=== PATIENT | female | born 1960 | race Caucasian/White ===

== ENCOUNTER 2021-06-26 10:39 | Emergency (ER) | payer MEDICAID, SELFPAY ==
[2021-06-26 10:50] VITALS: BP 111/62; PULSE 77; RESP 14; TEMP 36.6; O2SAT 99; BMI 20.3
--- NOTE | 2021-06-26 10:57 | XRR_ITS ---
PROCEDURE INFORMATION: Exam: XR Chest Exam date and time: 06/26/2021 10:57 AM Age: 61 years old Clinical indication: Pain; Chest pressure; Additional info: Cp TECHNIQUE: Imaging protocol: XR of the chest. Views: 1 view. COMPARISON: CR Chest 1 [place] [id number] 07/04/2017 10:58 AM FINDINGS: Lungs: Unremarkable. No consolidation. Pleural spaces: Unremarkable. No pleural effusion. No pneumothorax. Heart/Mediastinum: Unremarkable. No cardiomegaly. Bones/joints: Unremarkable. XR/XR chest 1V portable [id number] IMPRESSION: No acute findings.
--- NOTE | 2021-06-26 10:57 | ECG_ITS ---
[facility] Test Date: 2021-06-26 Pat Name: Lars Lawrence Department: Room: Gender: Female Data Warehouse Specialist: : 1960 Requested By: Mihir oRse Order Number: [id number] Lyle MD: Ronit Louise M.D. Measurements Intervals [place] Rate: 76 P: 27 [place]: 119 QRS: 69 QRSD: 78 T: 35 QT: 391 QTc: 442 Interpretive Statements SINUS RHYTHM WITH SHORT [place] INTERVAL Compared to ECG 07/04/2017 11:25:01 No significant changes Electronically Signed On 06-27-2021 8:15:10 SEMICONDUCTOR WAFERS MARKER by Ronit Louise M.D. [id number] f
--- NOTE | 2021-06-26 11:00 | ED_ITS ---
HPI - Chest Pain General: Chief Complaint: Chest Pain Stated Complaint: CHEST PAIN Time Seen by Provider: 06/26/21 10:50 Source: patient and EMS Mode of arrival: EMS Limitations: no limitations History of Present Illness: HPI narrative: 61-year-old female who states she been having right-sided chest pain since yesterday states been very sharp in nature much worse with lifting her arm and with palpation she denies any shortness of breath denies any diaphoresis states pain is currently a 6 out of 10 no vomiting no diarrhea. Associated symptoms: Deny abdominal pain, dyspnea, fever(s), nausea or vomiting Review of Systems Const: Denies: fever(s), chills, body aches or change in appetite Eyes: Denies: blurry vision or eye discomfort ENMT: Denies: throat pain or dental pain Card: Reports: chest pain Resp: Denies: dyspnea GI: Denies: abdominal pain, nausea, vomiting or diarrhea : Denies: dysuria Musc: Denies: neck pain or back pain Skin/Breast: Denies: rash Neuro: Denies: headache(s) Psych: Denies: depression Brad/Lymph: Denies: easy bruising All/Imm: Denies: urticaria PFSH ED PFSH: Family History (Updated 06/26/21 @ 12:07 by Mihir Rose MD) Other CAD (coronary artery disease) Social History (Updated 06/26/21 @ 12:07 by Mihir Rose MD) Smoking and tobacco status: never smoked Physical Exam Const: COMMON NORMALS: no acute distress, patient oriented x3 and healthy appearing HENMT: COMMON NORMALS: normocephalic and atraumatic HEAD & SCALP: normocephalic and atraumatic Eye: COMMON NORMALS: Equal, round and reactive pupils present and EOMs intact bilaterally PUPIL: Yes Equal, round and reactive pupils present Neck/C-Spine: COMMON NORMALS: full ROM and supple Chest: COMMONS NORMALS: normal inspection of the chest OTHER: point tender over right chest Resp: COMMON NORMALS: normal respiratory effort, No retractions, No use of accessory muscles and clear to auscultation bilaterally AUSCULTATION: clear to auscultation bilaterally Cardio: COMMON NORMALS: regular rate, regular rhythm and No murmurs present (Cardio) RATE: regular rate RHYTHM: regular rhythm GI: COMMON NORMALS: Normal to inspection, nondistended, normoactive bowel sounds present, Soft to palpation, non-tender and no masses PALPATION: Yes Soft to palpation Extremity: COMMON NORMALS: normal to inspection and full ROM Neuro: COMMON NORMALS: patient oriented x3, moves all extremities and no focal motor deficits Psych: COMMON NORMALS: mental status grossly normal, Normal thought process present and cooperative THOUGHT PROCESS: Normal thought process present Skin: COMMON NORMALS: no rashes or lesions noted and no wounds GENERAL SKIN EXAM: no rashes or lesions noted Course Vital Signs: Vital signs: Vital Signs Temperature 97.8 F 06/26/21 10:50 Pulse Rate 71 06/26/21 11:21 Respiratory Rate 18 06/26/21 11:21 Blood Pressure 116/73 06/26/21 11:21 Pulse Oximetry 97 06/26/21 11:21 MDM - Chest Pain MDM Narrative: Medical decision making narrative: Patient presents here with chest pain is likely musculoskeletal in nature she is point tender on her right chest. Troponin EKG here are all normal no signs of acute coronary syndrome or pulmonary embolism she is stable for discharge is to follow-up with her PCP and return if worsening. Lab Data: Labs: Lab Results 06/26/21 06/26/21 06/26/21 11:15 11:15 11:15 WBC 7.9 10^3/uL 10^3/ uL (4.0-10.0) RBC 4.24 10^6/uL 10^6 /uL (4.1-5.3) Hgb 12.5 g/dL g/dL (11.5-15.3) Hct 37.0 % % (37.0-47.0) MCV 87.3 fl fl (81-99) MCH 29.5 pg pg (28.0-34.0) MCHC 33.8 g/dL g/dL (30.0-36.0) RDW 11.8 % L % (12.1-15.1) Plt Count 258 10^3/cmm 10^3 /cmm (130-400) MPV 12.2 fL H fL (7.4-10.4) Neut % (Auto) 65.0 % % Lymph % (Auto) 25.6 % % [place] % (Auto) 8.1 % % Eos % (Auto) 0.9 % % Baso % (Auto) 0.3 % % Neut # (Auto) 5.13 10^3/uL 10^3 /uL (1.8-7.7) Lymph # (Auto) 2.0 10^3/uL 10^3/ uL (0.8-4.8) [place] # (Auto) 0.6 10^3/uL 10^3/ uL (0.2-0.9) Eos # (Auto) 0.1 10^3/uL 10^3/ uL (0.0-0.8) Baso # (Auto) 0.0 10^3/uL 10^3/ uL (0.0-0.1) Nucleated RBC % (a uto) 0 % % Nucleated RBCs # 0.0 /100WBC /100W BC Sodium 129 mmol/L L mmol /L (136-145) Potassium 3.6 mmol/L mmol/L (3.5-5.1) Chloride 98 mmol/L mmol/L (98-107) Carbon Dioxide 19 mmol/L L mmol/ L (22-29) Anion Gap 15.6 (5-19) BUN 12 mg/dL mg/dL (8-23) Creatinine 0.5 mg/dL mg/dL (0.5-0.9) GFR Calculation 125.4 mL/min mL/m in (90-130) Glucose 93 mg/dL mg/dL (65-115) Calculated Osmolal ity 267 mOsm/kg L mOs m/kg (285-295) Calcium 9.6 mg/dL mg/dL (8.5-10.5) Total Bilirubin 0.4 mg/dL mg/dL (0.15-1.2) AST 39 U/L H U/L (0-32) ALT 34 U/L H U/L (0-33) Alkaline Phosphata se 72 IU/L IU/L (35-105) Troponin T Baselin e 6 ng/L ng/L (0-10) Total Protein 7.4 g/dL g/dL (6.6-8.7) Albumin 4.0 g/dL g/dL (3.5-5.2) Globulin 3.4 g/dL g/dL (1.3-4.6) EKG Data^: EKG 1: Attestation: I personally reviewed and interpreted this EKG as follows: EKG interpretation date: 06/26/21 EKG interpretation time: 11:09 Interpretation: nsr hr [address] or t wave abnormalities qrs 78 qtc 422 Discharge Plan Discharge Patient Disposition: Home Clinical Impression: Atypical chest pain Condition: Stable Prescriptions: New Naprosyn 500 mg tablet 500 mg PO BID PRN (Reason: pain) Qty: 20 RF: 0 Discharge Orders: Discharge ED (Routine); Ordered 06/26/21 Ordered By: Mihir Rose Discharge Diet: Advance as tolerated Discharge Activity: Resume usual activity Patient Instructions: Chest Wall Pain (ED) Coding Level of Care Code ED Child And Adolescent Therapist for Chg Fwd Exam Comprehensive
[2021-06-26 11:19] VITALS: RESP 14; O2SAT 97
[2021-06-26] MEDS: morphine 4 mg/mL SDV 1 mL IVP (11:19)
[2021-06-26] MEDS: ondansetron 2 mg/ML SDV 2 mL 4 MG IVP (11:19)
[2021-06-26 11:21] VITALS: BP 116/73; PULSE 71; RESP 18; O2SAT 97
[2021-06-26 11:23] LABS: Basophils % 0.3 %; Eosinophils # 0.1 10^3/uL (0.0-0.8); Eosinophils % 0.9 %; Hemoglobin 12.5 g/dL (11.5-15.3); Lymphocytes % 25.6 %; Mean Corpuscular HGB Conc 33.8 g/dL (30.0-36.0); Mean Corpuscular Hemoglobin 29.5 pg (28.0-34.0); Mean Corpuscular Volume 87.3 fl (81-99); Mean Platelet Volume 12.2 fL (7.4-10.4); Monocytes # 0.6 10^3/uL (0.2-0.9); Monocytes % 8.1 %; Neutrophils # 5.13 10^3/uL (1.8-7.7); Nucleated Red Blood Cells % 0 %; Platelet Count 258 10^3/cmm (130-400); Red Blood Count 4.24 10^6/uL (4.1-5.3); Red Cell Distribution Width 11.8 % (12.1-15.1); White Blood Count 7.9 10^3/uL (4.0-10.0)
[2021-06-26 11:44] LABS: Alanine Aminotransferase 34 U/L (0-33); Alkaline Phosphatase 72 IU/L (35-105); Anion Gap 15.6 (5-19); Aspartate Amino Transferase 39 U/L (0-32); Blood Urea Nitrogen 12 mg/dL (8-23); Calcium 9.6 mg/dL (8.5-10.5); Carbon Dioxide 19 mmol/L (22-29); Chloride 98 mmol/L (98-107); Globulin 3.4 g/dL (1.3-4.6); Glomerular Filtration Rate 125.4 mL/min (90-130); Glucose 93 mg/dL (65-115); Osmolality Calculated 267 mOsm/kg (285-295); Potassium 3.6 mmol/L (3.5-5.1); Sodium 129 mmol/L (136-145); Total Bilirubin 0.4 mg/dL (0.15-1.2); Total Protein 7.4 g/dL (6.6-8.7)
[2021-06-26 11:45] LABS: Troponin(5th) Baseline 6 ng/L (0-10)
[2021-06-26 12:13] VITALS: BP 96/60; PULSE 69; RESP 16; O2SAT 99
== END 2021-06-26 12:15 | disposition home or self-care (01) ==
PROVIDERS: Emergency Provider Emergency Medicine
DX: R07.89 Other chest pain (principal); Z82.49 Family history of ischemic heart disease and other diseases of the circulatory system
CPT/HCPCS: 71045; 80053; 84484; 85025; 93005; 96374; 96375; 99283; J2270; J2405

== ENCOUNTER 2021-12-13 05:59 | Emergency (ER) | payer BC, MEDICAID, SELFPAY ==
[2021-12-13 06:03] VITALS: PULSE 89; RESP 17; TEMP 36.4; BMI 27.5
--- NOTE | 2021-12-13 06:20 | ECG_ITS ---
[facility] Test Date: 2021-12-13 Pat Name: Lars Lawrence Department: Room: Gender: Female Stna: : 1960 Requested By: Solo Escalona Order Number: [id number] Lyle MD: Shahid Lombardo M.D. Measurements Intervals [place] Rate: 68 P: 35 [place]: 137 QRS: 74 QRSD: 84 T: 51 QT: 413 QTc: 441 Interpretive Statements SINUS RHYTHM Compared to ECG 06/26/2021 11:09:11 Short [place] interval no longer present Electronically Signed On 12-13-2021 17:32:37 CDT by Shahid Lombardo M.D. [id number] f
--- NOTE | 2021-12-13 06:21 | XRR_ITS ---
PROCEDURE INFORMATION: Exam: XR Chest Exam date and time: 12/13/2021 6:49 AM Age: 61 years old Clinical indication: Angina; Patient HX: Chest pain off and on for 2 weeks; Additional info: Elevated BP TECHNIQUE: Imaging protocol: Radiologic exam of the chest. Views: 1 view. COMPARISON: CR XR chest 1V portable [id number] 06/26/2021 11:34 AM FINDINGS: Lungs: Unremarkable. No consolidation. Pleural spaces: Unremarkable. No pleural effusion. No pneumothorax. Heart/Mediastinum: Unremarkable. No cardiomegaly. Bones/joints: Unremarkable. XR/XR chest 1V portable [id number] IMPRESSION: No acute findings.
[2021-12-13 06:30] LABS: Basophils % 0.3 %; Eosinophils # 0.1 10^3/uL (0.0-0.8); Eosinophils % 1.4 %; Hematocrit 36.1 % (37.0-47.0); Hemoglobin 12.5 g/dL (11.5-15.3); Lymphocytes # 2.1 10^3/uL (0.8-4.8); Lymphocytes % 30.6 %; Mean Corpuscular HGB Conc 34.6 g/dL (30.0-36.0); Mean Corpuscular Hemoglobin 29.8 pg (28.0-34.0); Mean Platelet Volume 12.8 fL (7.4-10.4); Monocytes # 0.7 10^3/uL (0.2-0.9); Monocytes % 9.7 %; Neutrophils # 4.05 10^3/uL (1.8-7.7); Neutrophils % 57.9 %; Nucleated Red Blood Cells % 0 %; Platelet Count 212 10^3/cmm (130-400); Red Cell Distribution Width 11.9 % (12.1-15.1)
[2021-12-13] MEDS: sodium chloride 0.9% 1,000 ML 999 ML IV (06:46)
[2021-12-13 06:52] LABS: Alanine Aminotransferase 20 U/L (0-33); Albumin Level 4.1 g/dL (3.5-5.2); Alkaline Phosphatase 75 IU/L (35-105); Anion Gap 13.6 (5-19); Aspartate Amino Transferase 25 U/L (0-32); Blood Urea Nitrogen 12 mg/dL (8-23); Calcium 9.1 mg/dL (8.5-10.5); Carbon Dioxide 25 mmol/L (22-29); Chloride 105 mmol/L (98-107); Creatine Phosphokinase 118 U/L (26-192); Globulin 3.2 g/dL (1.3-4.6); Glomerular Filtration Rate 101.6 mL/min (90-130); Glucose 98 mg/dL (65-115); Osmolality Calculated 290 mOsm/kg (285-295); Potassium 3.6 mmol/L (3.5-5.1); Sodium 140 mmol/L (136-145); Total Bilirubin 0.3 mg/dL (0.15-1.2); Total Protein 7.3 g/dL (6.6-8.7)
--- NOTE | 2021-12-13 06:57 | W.ED.DIZZY ---
HPI - Dizziness General: Chief Complaint: Dizziness Stated Complaint: DIZZY/N/V Time Seen by Provider: 12/13/21 06:03 Source: patient Mode of arrival: ambulatory Limitations: language barrier History of Present Illness: HPI Narrative: 61-year-old [place] Citizen-speaking female presents emergency room with complaint of elevated blood pressure and dizziness. On arrival EMS states that the bigger problem they seem to gather from her was nausea vomiting and diarrhea. Through technical trainer she endorses that the nausea and vomiting but states she was stuck in bed because she got lightheaded and dizzy and felt too weak to get out of bed she does occasionally get chest pain that radiates into her back and is associated with bilateral arm numbness. She has no known history of heart disease she is taking valerian root and liquid carvedilol which she evidently gets sent to her from a [place] Citizen pharmacy. No fever sweats chills nonproductive cough bowels and bladder been unremarkable. All history obtained through technical trainer. She takes the Coreg intermittently. She has been intermittently having chest pain for several days. MD elicited complaint: dizziness and lightheadedness Onset (ago): hour(s) Timing: gradual onset Severity: moderate Description: lightheadedness and difficulty walking Context: change in medication and change in body position Exacerbating factors: movement/ambulation and change in body position Relieving factors: remaining still Associated symptoms: Reports nausea and vomiting; Denies abnormal vaginal bleeding, change in hearing, chest pain, chills, cough, diaphoresis, ear discharge, ear pressure, fevers/chills, headache(s), malaise, nasal congestion, palpitations, rash, short of breath, syncope, tinnitus or weakness Associated neuro symptoms: Reports numbness in extremities; Deny confusion, difficulty speaking, dysphagia, diplopia, extremity weakness, facial numbness, facial weakness, gait changes or visual changes Review of Systems Const: Denies: chills, malaise or diaphoresis ENMT: Denies: ear discharge, change in hearing, tinnitus or nasal congestion Card: Denies: chest pain, palpitations or syncope Resp: Denies: dyspnea, productive cough or non-productive cough GI: Reports: nausea and vomiting; Denies: dysphagia : Denies: flank pain, difficulty voiding, dysuria, urinary frequency or urinary urgency Skin/Breast: Denies: rash or pruritus Neuro: Reports: numbness in extremities; Denies: headache(s) or confusion PFSH ED PFSH: Medical History (Updated 12/13/21 @ 10:42 by Solo Kelly DO) Hypertension Ovarian cyst Surgical History (Updated 12/13/21 @ 07:00 by Solo Kelly DO) H/O oophorectomy Family History (Updated 06/26/21 @ 12:07 by Mihir Rose MD) Other CAD (coronary artery disease) Social History (Updated 12/13/21 @ 07:00 by Solo Kelly DO) Smoking and tobacco status: never smoked Alcohol intake: never Physical Exam Const: COMMON NORMALS: no acute distress GENERAL APPEARANCE: cooperative and comfortable ORIENTATION/CONSCIOUSNESS: Yes awake, Yes oriented to person, Yes oriented to place and Yes oriented to time HENMT: COMMON NORMALS: normocephalic, atraumatic and hearing grossly normal bilaterally HEAD & SCALP: normocephalic and atraumatic Neck/C-Spine: COMMON NORMALS: no JVD Resp: COMMON NORMALS: normal respiratory effort, No retractions, No use of accessory muscles and clear to auscultation bilaterally AUSCULTATION: clear to auscultation bilaterally Cardio: COMMON NORMALS: no JVD, regular rate, regular rhythm and No murmurs present (Cardio) RATE: regular rate RHYTHM: regular rhythm GI: COMMON NORMALS: Soft to palpation and No hepatosplenomegaly present AUSCULTATION: Yes normoactive bowel sounds PALPATION: Yes Soft to palpation, No Tenderness to palpation present (GI), No Guarding due to palpation present (GI) and Yes No hepatosplenomegaly present Extremity: COMMON NORMALS: normal to inspection, capillary refill normal, no clubbing, cyanosis or edema, no calf tenderness and no pedal edema Neuro: SENSORIUM/ORIENTATION: Yes oriented to person, Yes oriented to place and Yes oriented to time Skin: COMMON NORMALS: no rashes or lesions noted GENERAL SKIN EXAM: no rashes or lesions noted Course Vital Signs: Vital signs: Vital Signs Temperature 97.6 F 12/13/21 06:03 Pulse Rate 76 12/13/21 11:05 Respiratory Rate 16 12/13/21 11:05 Blood Pressure 106/68 12/13/21 11:05 Pulse Oximetry 100 12/13/21 11:05 MDM - Dizziness Medical Decision Making History was done through a phone solution specialist and then one of our staff speaks fluent [place] was able to help us with the discharge. Reviewed labs and imaging patient is feeling much better orthostatics were good. She has been taking a liquid carvedilol that she gets from a [place] pharmacy advised her to stop both the valerian root and the liquid for carvedilol she is feeling much better now reviewed labs and imaging will discharge home follow-up with her primary care Medical Records I reviewed the patient's medical records. Lab Data I reviewed the patient's lab results. : 12/13/21 06:17 12/13/21 06:17 Radiology Impressions Chest X-Ray 12/13/21 06:21 IMPRESSION: No acute findings. Laboratory Results WBC 7.0 10^3/uL (4.0-10.0) 12/13/21 06:17 RBC 4.20 10^6/uL (4.1-5.3) 12/13/21 06:17 Hgb 12.5 g/dL (11.5-15.3) 12/13/21 06:17 Hct 36.1 % (37.0-47.0) L 12/13/21 06:17 MCV 86.0 fl (81-99) 12/13/21 06:17 MCH 29.8 pg (28.0-34.0) 12/13/21 06:17 MCHC 34.6 g/dL (30.0-36.0) 12/13/21 06:17 RDW 11.9 % (12.1-15.1) L 12/13/21 06:17 Plt Count 212 10^3/cmm (130-400) 12/13/21 06:17 MPV 12.8 fL (7.4-10.4) H 12/13/21 06:17 Neut % (Auto) 57.9 % 12/13/21 06:17 Lymph % (Auto) 30.6 % 12/13/21 06:17 [place] % (Auto) 9.7 % 12/13/21 06:17 Eos % (Auto) 1.4 % 12/13/21 06:17 Baso % (Auto) 0.3 % 12/13/21 06:17 Neut # (Auto) 4.05 10^3/uL (1.8-7.7) 12/13/21 06:17 Lymph # (Auto) 2.1 10^3/uL (0.8-4.8) 12/13/21 06:17 [place] # (Auto) 0.7 10^3/uL (0.2-0.9) 12/13/21 06:17 Eos # (Auto) 0.1 10^3/uL (0.0-0.8) 12/13/21 06:17 Baso # (Auto) 0.0 10^3/uL (0.0-0.1) 12/13/21 06:17 Nucleated RBC % (auto) 0 % 12/13/21 06:17 Nucleated RBCs # 0.0 /100WBC 12/13/21 06:17 Sodium 140 mmol/L (136-145) 12/13/21 06:17 Potassium 3.6 mmol/L (3.5-5.1) 12/13/21 06:17 Chloride 105 mmol/L (98-107) 12/13/21 06:17 Carbon Dioxide 25 mmol/L (22-29) 12/13/21 06:17 Anion Gap 13.6 (5-19) 12/13/21 06:17 BUN 12 mg/dL (8-23) 12/13/21 06:17 Creatinine 0.6 mg/dL (0.5-0.9) 12/13/21 06:17 GFR Calculation 101.6 mL/min (90-130) 12/13/21 06:17 Glucose 98 mg/dL (65-115) 12/13/21 06:17 Calculated Osmolality 290 mOsm/kg (285-295) 12/13/21 06:17 Calcium 9.1 mg/dL (8.5-10.5) 12/13/21 06:17 Total Bilirubin 0.3 mg/dL (0.15-1.2) 12/13/21 06:17 AST 25 U/L (0-32) 12/13/21 06:17 ALT 20 U/L (0-33) 12/13/21 06:17 Alkaline Phosphatase 75 IU/L (35-105) 12/13/21 06:17 Creatine Kinase 118 U/L (26-192) 12/13/21 06:17 Total Protein 7.3 g/dL (6.6-8.7) 12/13/21 06:17 Albumin 4.1 g/dL (3.5-5.2) 12/13/21 06:17 Globulin 3.2 g/dL (1.3-4.6) 12/13/21 06:17 Urine Color Straw (Yellow) 12/13/21 10:22 Urine Appearance Clear (CLEAR) 12/13/21 10:22 Urine pH 7 (5-7) 12/13/21 10:22 Ur Specific [place] 1.005 (1.005-1.030) 12/13/21 10:22 Urine Protein Neg (Negative) 12/13/21 10:22 Urine Glucose (UA) Norm (Normal) 12/13/21 10:22 Urine Ketones Negative (Negative) 12/13/21 10:22 Urine Blood Neg (Negative) 12/13/21 10:22 Urine Nitrate Negative (Negative) 12/13/21 10:22 Urine Bilirubin Neg (Negative) 12/13/21 10:22 Urine Urobilinogen Norm mg/dL (Negative) 12/13/21 10:22 Ur Leukocyte Esterase Negative (Negative) 12/13/21 10:22 Discharge Plan Discharge Patient Disposition: Home Clinical Impression: Dizziness, Orthostasis Prescriptions: No Action No Known Home Medications 0RF Discharge Orders: Discharge ED (Routine); Ordered 12/13/21 Ordered By: Solo Kelly Referrals: Jose Elias Su DO [Primary Care Provider] - Discharge Diet: Usual diet Discharge Activity: Increase activity as tolerated Patient Instructions: Opioid Safety Activity Restrictions/Additional Instructions: Stop all medications that you have been taking follow-up with your primary care doctor to reevaluate within the next 3 to 5 days. Coding Level of Care Code ED Treasury Representative for Chg Fwd Exam Comprehensive
[2021-12-13 07:43] VITALS: BP 115/73; PULSE 73; RESP 15; O2SAT 98
[2021-12-13 10:24] VITALS: BP 109/65; BP 123/70; BP 123/72; PULSE 69; PULSE 72; PULSE 77
[2021-12-13 10:40] LABS: Add Urine Microscopic? NO; Charge for UA Resulting for Rev
[2021-12-13 10:49] LABS: Bilirubin Urine Neg (Negative); Blood Urine Neg (Negative); Glucose Urine UA Norm (Normal); Ketones Urine Negative (Negative); Leukocyte Esterase Urine Negative (Negative); Nitrate Urine Negative (Negative); Protein Urine Neg (Negative); Specific Gravity, Urine 1.005 (1.005-1.030); Urine Appearance Clear (CLEAR); Urine Color Straw (Yellow); Urobilinogen Urine Norm (Negative); pH Urine 7 (5-7)
[2021-12-13 11:05] VITALS: BP 106/68; PULSE 76; RESP 16; O2SAT 100
== END 2021-12-13 11:08 | disposition home or self-care (01) ==
PROVIDERS: Emergency Provider Family Medicine; PCP Family Medicine
DX: R42 Dizziness and giddiness (principal); I95.1 Orthostatic hypotension; I10 Essential (primary) hypertension
CPT/HCPCS: 71045; 80053; 81003; 82550; 85025; 93005; 96360; 99284; J7030

== ENCOUNTER 2022-04-29 10:36 | Outpatient (CLI) | payer BC, MEDICAID, SELFPAY ==
--- NOTE | 2022-04-29 | ECG_ITS ---
[facility] Test Date: 2022-04-29 Pat Name: Lars Lawrence Department: Room: Gender: Female Dispatch Manager: : 1960 Requested By: Aurelio Harris Order Number: [id number] Lyle MD: Corky Mares M.D. Interpretive Statements NAME OF STUDY: TREADMILL STRESS ECHOCARDIOGRAM INDICATION: RECURRENT CP, PROCEDURE: At the baseline, the patient's blood pressure was 110/76 with a heart rate of 81. The baseline electrocardiogram showed normal sinus rhythm with normal ST-Ts.. The patient exercised for 2 minutes and 23 seconds on a standard [place] protocol. Patient attained a maximum heart rate of 148 beats per minute(93% of the maximum predicted heart rate) with a blood pressure at the peak exercise of 133/71 mm Hg. The EKG at the peak exercise revealed [address] depressions in leads II, III and aVF. Patient did not have any chest pain or any significant EKG changes with the exercise During the recovery phase, there were no new changes. Blood pressure at the end of the recovery phase was 99/62 mm Hg with a heart rate of 72 per minute. Echocardiographic pictures were taken at the baseline, immediately following the peak exercise and during the recovery phase. CONCLUSION: 1. Abnormal EKG response to treadmill exercise suggesting possible inferior wall ischemia 2. No exercise-induced chest pain or cardiac arrhythmia 3. Impaired exercise tolerance, attained a maximum of 4.6 METs 4. Please see separate report for the echocardiographic response to exercise. 5. Mild hypotension during the recovery phase, asymptomatic. Electronically Signed On 05-08-2022 17:18:10 INTEGRATED CAMPAIGN MANAGER by Corky Mares M.D. [id number]
--- NOTE | 2022-04-29 11:39 | USCV_ITS ---
Lars Lawrence Age: 62 Gender: F : 1960 Exam Date: 04/29/2022 12:08 Ordering Phys: Aurelio Fitzgerald MD Technologist: DEMETRI Exam Location: [facility] [place] Indication: Recurrent chest pain Rhythm: Sinus Patient History: HTN-Untreated.(normotensive the entire stress test), Family H/O CAD Cardiac Medications: No home meds Medications in past 24 hours: none Contrast: Stress Results Protocol: Ky Total dose(mL): Exercise Duration (min:sec): 2:23 METS: 4.6 Resting HR: 68 Resting BP: 110 / 76 Peak HR: 148 Peak BP: 140 / 78 Max Predicted HR: 158 94 % Max Predicted HR Target HR: 134 Double Product: Stress Summary: Patient is [place] and spoke very little Divehi. Her son was here to interpret for her but had to step out just before walking on the treadmill. The patient smiled the entire time and did not appear to be any distress whatsoever. No labored breathing noted. BP Response: Normotensive entire test Reason for Termination: target HR reached Cardiac Symptoms: none ECG Analysis Resting ECG: Stress ECG: Arrhythmia: MEASUREMENTS (Male/Female) Normal Values 2D ECHO LVOT Diameter 2.0 cm LV Ejection Fraction MOD 2C 70.7 % LV Ejection Fraction 2C AL 71.6 % LA Diameter 2.7 cm LA Width 3.1 cm LA Height 5.3 cm RA Width 3.7 cm RA Height 4.6 cm Aorta at Sinotubular Diameter 1.4 cm DOPPLER AV Peak Velocity 137.0 cm/s LVOT Peak Velocity 99.0 cm/s AV Area Cont Eq vti 2.6 cm squared AV Area Cont Eq pk 2.3 cm squared MV Area PHT 4.9 cm squared Mitral E to A Ratio 1.1 MV E' Velocity 80.0 cm/s FINDINGS The baseline echocardiogram revealed normal LV size and ejection fraction of 71%. No gross wall motion normalities noted. Both atria were found to be mildly dilated, left greater than the right. Segmental wall motion analysis revealing no gross wall motion abnormalities. No intracardiac masses or pericardial effusion. The aortic root was of normal size. With the peak exercise, there was good augmentation of all the segments with no exercise-induced wall motion normalities During the recovery phase, there is no new changes CONCLUSIONS 1. Normal echocardiographic response to treadmill exercise, suggesting low probability for coronary ischemia. 2. Mild biatrial enlargement. 3. For the EKG response to exercise, please refer to the separate report. 4. Impaired exercise tolerance-attained only 4.6 METS Consider doing a complete echo to evaluate for any valvular lesions or intracardiac shunts to explain the biatrial enlargement Dr Corky Mares MD [facility] (Electronically Signed) Final Date: 30 April 2022 12:13 S
[2022-04-29 12:39] VITALS: BP 99/62; PULSE 72
== END 2022-04-29 10:37 | disposition home or self-care (01) ==
LOC: CDL 10:39
PROVIDERS: PCP Family Medicine; Visit Provider Family Medicine
DX: R07.9 Chest pain, unspecified (principal); I51.7 Cardiomegaly
CPT/HCPCS: 93017; 93350; 93352

== ENCOUNTER 2022-05-29 12:09 | Emergency (ER) | payer BC, MEDICAID, SELFPAY ==
[2022-05-29 12:13] VITALS: BP 110/70; PULSE 111; RESP 16; TEMP 37.4; O2SAT 97; BMI 22.7
--- NOTE | 2022-05-29 12:42 | ED_ITS ---
HPI - Fever General: Chief Complaint: Fever Stated Complaint: Fever, SOB, and Heart rate is high Time Seen by Provider: 05/29/22 12:43 History of Present Illness: fever and cough Associated symptoms: Reports chills, nausea and vomiting Review of Systems General: Reports: 10 or more systems reviewed and unremarkable except in HPI and below Const: Reports: fever(s), chills, body aches, change in appetite, fatigue and malaise ENMT: Reports: throat pain Resp: Reports: dyspnea and productive cough GI: Reports: nausea and vomiting PFSH ED PFSH: Medical History Hypertension Ovarian cyst Surgical History H/O oophorectomy Family History Other CAD (coronary artery disease) Social History Smoking and tobacco status: never smoked Alcohol intake: never Physical Exam Const: COMMON NORMALS: no acute distress, patient oriented x3, no limitations and alert GENERAL APPEARANCE: cooperative and comfortable ORIENTATION/CONSCIOUSNESS: Yes awake, Yes oriented to person, Yes oriented to place and Yes oriented to time HENMT: COMMON NORMALS: normocephalic, atraumatic, external ears normal, EAC's normal, TM's normal bilaterally and Normal external nose present HEAD & SCALP: normal to inspection, normocephalic and atraumatic FACE & SINUS: normal facial exam, sinuses nontender and face symmetric NOSE: Normal external nose present, Normal nares present and No nasal discharge present EXTERNAL EAR: Yes external ears normal EXTERNAL AUDITORY CANAL: EAC's normal TYMPANIC MEMBRANE: TM's normal bilaterally MOUTH: Normal oral and palatal mucosa present, lip normal and tongue normal THROAT: posterior oropharynx normal, tonsils normal and uvula midline Eye: COMMON NORMALS: Equal, round and reactive pupils present, EOMs intact bilaterally and conjunctivae normal GENERAL EYE: appearance normal, both eyes and all related structures and normal light reflex EYELID: eyelids normal CONJUNCTIVA: Yes conjunctivae normal PUPIL: Yes Equal, round and reactive pupils present EOM: Yes EOM abnormal DIRECT OPHTHALMOSCOPY: Yes normal light reflex Neck/C-Spine: COMMON NORMALS: full ROM, no lymphadenopathy, supple, no meningeal signs, no JVD and Thyroid normal GENERAL: Yes normal visual inspection THYROID: Thyroid normal CERVICAL SPINE: Yes cervical ROM normal and Yes normal cervical lordosis Lymph: LYMPHATIC: no lymphadenopathy noted Chest: COMMONS NORMALS: normal inspection of the chest and normal palpation of entire chest wall Resp: COMMON NORMALS: normal respiratory effort and No retractions EFFORT & INSPECTION: Yes able to speak in complete sentences Cardio: COMMON NORMALS: no JVD, regular rate, regular rhythm, S1 normal heart sound present, S2 normal heart sound present, No gallops present (Cardio), No clicks present (Cardio), No murmurs present (Cardio), No rub (Cardio) and Peripheral pulses 2+ throughout RATE: regular rate RHYTHM: regular rhythm HEART SOUNDS: S1 normal heart sound present and S2 normal heart sound present PERIPHERAL PULSES: Peripheral pulses 2+ throughout GI: COMMON NORMALS: Normal to inspection, nondistended, normoactive bowel sounds present, Soft to palpation, non-tender and no masses PALPATION: Yes Soft to palpation : COMMON NORMALS: Yes no CVA tenderness and Yes normal external appearance BLADDER/KIDNEY EXAM: Yes no CVA tenderness Back/Pelvis: COMMON NORMALS: no CVA tenderness, thoracic and lumbar spine normal to inspection, no thoracic nor lumbar tenderness and thoraco-lumbar ROM normal Extremity: COMMON NORMALS: normal to inspection, full ROM, capillary refill normal, no joint enlargement, no clubbing, cyanosis or edema, no calf tenderness and no pedal edema GENERAL: Yes normal exam except as noted Neuro: COMMON NORMALS: patient oriented x3, moves all extremities, no focal motor deficits, no sensory deficits noted and gait normal SENSORIUM/ORIENTATION: Yes alert, Yes oriented to person, Yes oriented to place and Yes oriented to time MENINGEAL SIGNS: Yes no meningeal signs Psych: COMMON NORMALS: mental status grossly normal, Normal thought process present, cooperative, normal affect, speech normal and activity/motor behavior normal SPEECH: Yes normal speech THOUGHT PROCESS: Normal thought process present Skin: COMMON NORMALS: no rashes or lesions noted, no wounds and turgor normal GENERAL SKIN EXAM: no rashes or lesions noted and turgor normal Course ED course: Pt presents to ER with complaints of fever, NV, sore throat, body aches, and general malaise x 2 days. Swabs collected, pt is covid positive. Vital Signs: Vital signs: Vital Signs Temperature 99.4 F 05/29/22 12:13 Pulse Rate 111 H 05/29/22 12:13 Respiratory Rate 16 05/29/22 12:13 Blood Pressure 110/70 05/29/22 12:13 Pulse Oximetry 97 05/29/22 12:13 Oxygen Delivery Me thod 05/29/22 12:13 MDM - Fever Medical Decision Making Will proceed with DC and supportive therapies as well as weight and watch antibiotics; functional supplements encouraged to help with immune function. Return for new or worsening symptoms. Lab Data Laboratory Results Influenza Type A Ag negative (Negative) 05/29/22 12:58 Influenza Type B Ag negative (Negative) 05/29/22 12:58 SARS-CoV-2 Ag (Rapid) Positive (Negative) H 05/29/22 12:58 Group A Strep Rapid Negative (Negative) 05/29/22 12:58 Discharge Plan Discharge Patient Disposition: Home Clinical Impression: COVID-19, Bronchitis Condition: Stable Prescriptions: New acetylcysteine [NAC] 600 mg capsule 600 mg PO DAILY Qty: 30 0RF cholecalciferol (vitamin D3) 625 mcg (25,000 unit) capsule 1,250 mcg PO ONCE Qty: 30 0RF zinc acetate 50 mg (zinc) capsule 50 mg PO DAILY Qty: 30 0RF quercetin 500 mg capsule 500 mg PO DAILY Qty: 30 0RF azithromycin [Zithromax] 250 mg tablet See Rx Instructions .ROUTE .COMPLEX Qty: 6 0RF Rx Instructions: For 250 mg dose pack: take 500 mg today (day 1), then 250 mg for 4 days (days 2-5) Mucinex DM 30-600 mg tablet extended release 12 hr 1 tab PO Q12H Qty: 14 0RF methylprednisolone [Medrol (Jong)] 4 mg tablets,dose pack See Rx Instructions .ROUTE .COMPLEX Qty: 21 0RF Rx Instructions: orally per package directions Discharge Orders: Discharge ED (Routine); Ordered 05/29/22 Ordered By: Yulia Villalobos Referrals: Aurelio Fitzgerald MD [Primary Care Provider] - Discharge Diet: Advance as tolerated Discharge Activity: Increase activity as tolerated Patient Instructions: Opioid Safety, Pain Management Coding Level of Care Code ED Certified Medical Coding Specialist for Donta Morrison
[2022-05-29 13:29] LABS: Rapid Strep A Test Negative (Negative)
[2022-05-29 13:34] LABS: Influenza A by IFA negative (Negative); Influenza B by IFA negative (Negative)
[2022-05-29 13:39] LABS: SARS Covid-2 Antigen Positive (Negative)
== END 2022-05-29 15:40 | disposition home or self-care (01) ==
PROVIDERS: Emergency Provider Nurse Practitioner Family; PCP Family Medicine
DX: U07.1 COVID-19 (principal); J40 Bronchitis, not specified as acute or chronic; I10 Essential (primary) hypertension
CPT/HCPCS: 87081; 87426; 87804; 87880; 99283

== ENCOUNTER 2024-06-06 10:46 | Outpatient (CLI) | payer BC, MEDICAID, SELFPAY ==
[2024-06-06 12:18] VITALS: BMI 21.9
--- NOTE | 2024-06-06 12:26 | ECG_ITS ---
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 Interpretive Statements Lung unchanged pre/post procedure; Intraprocedure shortess of breath; Symptoms resoled by discharge PROCEDURE: At the baseline, the patient's blood pressure was 98/68 with a heart rate of 85. The baseline electrocardiogram showed normal sinus rhythm with normal ST-Ts.. The patient exercised for 5 minutes on a standard [place] protocol. Patient attained a maximum heart rate of 153 beats per minute(98% of the maximum predicted heart rate) with a blood pressure at the peak exercise of 122/64 mm Hg. The EKG at the peak exercise revealed some nonspecific ST changes. Patient did not have any chest pain or any significant cardiac arrhythmias with the exercise During the recovery phase, there were no new changes. Blood pressure at the end of the recovery phase was 128/71 mm Hg with a heart rate of 105 per minute. CONCLUSION: 1. Normal EKG response to treadmill exercise 2. No exercise-induced chest pain or cardiac arrhythmia 3. Slightly impaired exercise tolerance, attained a maximum of 7.0 METs Electronically Signed On 06-07-2024 14:48:40 ANIMAL CARE ASSISTANT by Corky Mares M.D. [email or web address]
[2024-06-06 13:06] VITALS: BP 128/71; PULSE 82
== END 2024-06-06 10:47 | disposition home or self-care (01) ==
LOC: CDL 10:48
PROVIDERS: PCP Family Medicine; Visit Provider Family Medicine
DX: R07.9 Chest pain, unspecified (principal); R06.02 Shortness of breath
CPT/HCPCS: 93017